=== PATIENT | female | born 2000 | race Caucasian/White ===

== ENCOUNTER 2024-11-11 10:21 | Emergency (ER) | payer OTHER ==
[2024-11-11 10:40] VITALS: BP 119/63; PULSE 90; RESP 20; TEMP 98.8; BMI 41.5
[2024-11-11] MEDS ORDERED: FLUTICASONE PROP 0.05% 16 GM NASAL SPRAY NS ONE (10:55)
[2024-11-11] MEDS ORDERED: PSEUDOEPHEDRINE HCL 60 MG TABLET ONE (11:08)
[2024-11-11] MEDS: PSEUDOEPHEDRINE HCL 30 MG TABLET PO ONE (11:26)
[2024-11-11 13:40] LABS: HIV INTERPRETATION NEGATIVE (NEGATIVE)
[2024-11-11 13:41] LABS: HCV DIAGNOSTIC IN-HOUSE W/RFLX NON-REACTIVE (NONREACTIVE)
== END 2024-11-11 12:12 | disposition home or self-care (01) ==
LOC: JERFT 10:21
DX: R09.81 Nasal congestion (principal); H92.02 Otalgia, left ear; R68.84 Jaw pain
CPT/HCPCS: 36415; 86803; 87389; 87637-QW; 99283-25